=== PATIENT | male | born 1935 | race Caucasian/White ===

== ENCOUNTER 2017-09-08 21:51 | Observation (INO) | payer MEDICARE, OTHER ==
[~2017-09-08] VITALS: Ht 185.4 cm; Wt 81.5 kg
[~2017-09-08 21:51] MED LIST: ACET325 PO; ASCO500 PO; ASPI81CH PO; CEFTR1PB IV; CHOL10002 PO; Cinnamon3.7 ML PO; Colace100 MG PO; DONE5 PO; ERGO400 PO; FISH1000 PO; FOLI400 PO; Hair, Skin & N1 EACH PO; LEVCAR2510 PO; LEVCAR25ER PO; NYST100TC TOP; OMEPRAZOLE MAGN20 MG PO; Ocuvite Lutein1 EACH PO; STOOL SOFTNER PO; TOCO400 PO
[2017-09-08 23:02] LABS: BASOPHILS ABSOLUTE AUTO 0.05 K/mm3 (0.00-0.23); BASOPHILS PERCENT AUTO 1 % (0-2); EOSINOPHILS ABSOLUTE AUTO 0.32 K/mm3 (0.00-0.68); EOSINOPHILS PERCENT AUTO 3 % (0-6); Hematocrit 41.2 % (37.0-53.0); Hemoglobin 13.2 g/dL (13.5-17.5); IMMATURE GRAN ABSOLUTE AUTO 0.05 K/mm3 (0.00-0.10); IMMATURE GRAN PERCENT AUTO 1 % (0-1); LYMPHOCYTES ABSOLUTE AUTO 1.34 K/mm3 (0.84-5.20); LYMPHOCYTES PERCENT AUTO 14 % (21-46); MONOCYTES ABSOLUTE AUTO 0.78 K/mm3 (0.16-1.47); MONOCYTES PERCENT AUTO 8 % (4-13); Mean Corpuscular HGB 31.2 pg (26.0-34.0); Mean Corpuscular Volume 97 fL (80-100); Mean Platelet Volume 8.9 fL (9.1-12.4); NEUTROPHILS ABSOLUTE AUTO 7.13 K/mm3 (1.96-9.15); NEUTROPHILS PERCENT AUTO 74 % (41-73); Platelet Count 311 K/mm3 (150-400); RDW Coefficient Variation 12.7 % (11.7-14.2); RDW Standard Deviation 45.1 fL (35.1-46.3); Red Blood Cell Count 4.23 M/mm3 (4.30-5.90); White Blood Cell Count 9.67 K/mm3 (4.00-11.30)
[2017-09-08 23:16] LABS: Anion Gap 8 mmol/L (6-16); Blood Urea Nitrogen 25 mg/dL (8-24); Bun/Creatinine Ratio 27.3 (12.0-20.0); CO2, Blood 26 mmol/L (21-32); Chloride, Blood 110 mmol/L (98-108); Creatinine, Blood 0.92 mg/dL (0.60-1.20); Glomerular Filtration Rate >60 (60-); Glucose, Blood 113 mg/dL (70-99); Potassium, Blood 4.5 mmol/L (3.5-5.5); Sodium, Blood 144 mmol/L (136-145)
[2017-09-09] MEDS ORDERED: XARELTO20 MG PO (13:46)
[2017-09-09] MEDS ORDERED: EXELON1 EACH TD (13:48)
[2017-09-09] MEDS ORDERED: NUPLAZID17 MG PO (13:49)
[2017-09-09] MEDS ORDERED: RYTARY ER 61.21 EACH PO (13:49)
[2017-09-12] MEDS ORDERED: NUPLAZID17 MG PO (08:47)
[2017-09-12] MEDS ORDERED: Benazepril HCl10 MG PO (08:49)
[2017-09-12] MEDS ORDERED: QUET25 PO (08:50)
[2017-09-12] MEDS ORDERED: RYTARY ER 61.21 EACH PO (08:51)
[2017-09-12] MEDS ORDERED: TAMS.4ER PO (08:52)
[2018-07-03] MEDS ORDERED: FINA5 PO (08:16)
[2018-07-03] MEDS ORDERED: Bactrim Ds Tab1 EACH PO (08:16)
== END 2017-09-12 14:49 | disposition home or self-care (01) ==
LOC: ER 21:51 → MEDS 21:52 → ER 09-09 00:28 → MEDS 09-09 00:28 → ENPENDDIS 09-12 08:26 → MEDS 09-12 14:49
PROVIDERS: Emergency Medicine
DX: G20 Parkinson's disease (principal); F02.80 Dementia in other diseases classified elsewhere, unspecified severity, without behavioral disturbance, psychotic disturbance, mood disturbance, and anxiety; I10 Essential (primary) hypertension; N40.1 Benign prostatic hyperplasia with lower urinary tract symptoms; N13.8 Other obstructive and reflux uropathy; F41.9 Anxiety disorder, unspecified; R44.3 Hallucinations, unspecified; K21.9 Gastro-esophageal reflux disease without esophagitis; F17.200 Nicotine dependence, unspecified, uncomplicated; R41.82 Altered mental status, unspecified; G62.9 Polyneuropathy, unspecified; Z98.890 Other specified postprocedural states; Z79.01 Long term (current) use of anticoagulants; Z79.899 Other long term (current) drug therapy; Z98.1 Arthrodesis status
CPT/HCPCS: 80048; 81000; 85025; 93005; 93010; 97116; 97162; 97166; 97530; 99285; G0378; G8978; G8979; G8987; G8988; G8989

== ENCOUNTER 2017-11-05 09:50 | Inpatient (IN) | payer MEDICARE, OTHER ==
[~2017-11-05] VITALS: Ht 175.3 cm; Wt 75.2 kg
[~2017-11-05 09:50] MED LIST changes: +Benazepril HCl10 MG PO; +EXELON1 EACH TD; +NUPLAZID17 MG PO; +QUET25 PO; +RYTARY ER 61.21 EACH PO; +TAMS.4ER PO; +XARELTO20 MG PO
[2017-11-05 10:44] LABS: BASOPHILS ABSOLUTE AUTO 0.04 K/mm3 (0.00-0.23); BASOPHILS PERCENT AUTO 0 % (0-2); EOSINOPHILS ABSOLUTE AUTO 0.22 K/mm3 (0.00-0.68); EOSINOPHILS PERCENT AUTO 2 % (0-6); Hematocrit 38.5 % (37.0-53.0); Hemoglobin 12.2 g/dL (13.5-17.5); IMMATURE GRAN ABSOLUTE AUTO 0.03 K/mm3 (0.00-0.10); IMMATURE GRAN PERCENT AUTO 0 % (0-1); LYMPHOCYTES PERCENT AUTO 13 % (21-46); MONOCYTES ABSOLUTE AUTO 0.87 K/mm3 (0.16-1.47); MONOCYTES PERCENT AUTO 9 % (4-13); Mean Corpuscular HGB 30.7 pg (26.0-34.0); Mean Corpuscular HGB Conc 31.7 g/dL (31.5-36.5); Mean Corpuscular Volume 97 fL (80-100); Mean Platelet Volume 9.1 fL (9.1-12.4); NEUTROPHILS PERCENT AUTO 75 % (41-73); Platelet Count 322 K/mm3 (150-400); Red Blood Cell Count 3.98 M/mm3 (4.30-5.90); White Blood Cell Count 9.56 K/mm3 (4.00-11.30)
[2017-11-05 11:10] LABS: Alanine Aminotransfer (ALT/SGP 9 U/L (12-78); Albumin, Blood 3.1 g/dL (3.4-5.0); Alk Phos 100 U/L (50-136); Anion Gap 4 mmol/L (6-16); Aspartate Aminotrans (AST/SGOT 17 U/L (12-37); Bilirubin, Total 0.7 mg/dL (0.1-1.0); Blood Urea Nitrogen 21 mg/dL (8-24); Bun/Creatinine Ratio 27.5 (12.0-20.0); CO2, Blood 26 mmol/L (21-32); Chloride, Blood 110 mmol/L (98-108); Creatinine, Blood 0.77 mg/dL (0.60-1.20); Globulin, Blood 3.2 g/dL (2.2-4.0); Glomerular Filtration Rate >60 (60-); Glucose, Blood 102 mg/dL (70-99); Potassium, Blood 4.1 mmol/L (3.5-5.5); Sodium, Blood 140 mmol/L (136-145); Total Protein, Blood 6.3 g/dL (6.4-8.2)
[2017-11-05] MEDS ORDERED: DOCU100 PO (17:07)
[2017-11-12 05:03] LABS: BASOPHILS ABSOLUTE AUTO 0.04 K/mm3 (0.00-0.23); BASOPHILS PERCENT AUTO 1 % (0-2); EOSINOPHILS ABSOLUTE AUTO 0.46 K/mm3 (0.00-0.68); EOSINOPHILS PERCENT AUTO 6 % (0-6); Hematocrit 39.1 % (37.0-53.0); Hemoglobin 12.2 g/dL (13.5-17.5); IMMATURE GRAN ABSOLUTE AUTO 0.05 K/mm3 (0.00-0.10); IMMATURE GRAN PERCENT AUTO 1 % (0-1); LYMPHOCYTES ABSOLUTE AUTO 1.44 K/mm3 (0.84-5.20); LYMPHOCYTES PERCENT AUTO 17 % (21-46); MONOCYTES ABSOLUTE AUTO 0.86 K/mm3 (0.16-1.47); MONOCYTES PERCENT AUTO 10 % (4-13); Mean Corpuscular HGB 30.8 pg (26.0-34.0); Mean Corpuscular HGB Conc 31.2 g/dL (31.5-36.5); Mean Corpuscular Volume 99 fL (80-100); Mean Platelet Volume 10.2 fL (9.1-12.4); NEUTROPHILS ABSOLUTE AUTO 5.51 K/mm3 (1.96-9.15); NEUTROPHILS PERCENT AUTO 66 % (41-73); Platelet Count 300 K/mm3 (150-400); RDW Coefficient Variation 12.3 % (11.7-14.2); RDW Standard Deviation 44.3 fL (35.1-46.3); Red Blood Cell Count 3.96 M/mm3 (4.30-5.90); White Blood Cell Count 8.36 K/mm3 (4.00-11.30)
[2017-11-12 05:23] LABS: Anion Gap 8 mmol/L (6-16); Blood Urea Nitrogen 16 mg/dL (8-24); Bun/Creatinine Ratio 22.5 (12.0-20.0); CO2, Blood 23 mmol/L (21-32); Calcium, Blood 9.4 mg/dL (8.5-10.1); Chloride, Blood 108 mmol/L (98-108); Creatinine, Blood 0.71 mg/dL (0.60-1.20); Glomerular Filtration Rate >60 (60-); Glucose, Blood 91 mg/dL (70-99); Potassium, Blood 4.3 mmol/L (3.5-5.5); Sodium, Blood 139 mmol/L (136-145)
[2017-11-19] MEDS ORDERED: ACET325 PO (11:26)
[2017-11-19] MEDS ORDERED: Bisac-Evac10 MG PR (11:28)
[2017-11-19] MEDS ORDERED: MUPIROCIN1 GM TOP (11:29)
[2017-11-19] MEDS ORDERED: NYSTATIN1 EAC1 TOP (11:31)
[2017-11-19] MEDS ORDERED: MIRALAX17 GM PO (11:31)
[2017-11-19] MEDS ORDERED: RYTARY ER 61.21 EACH PO (11:32)
[2017-11-19] MEDS ORDERED: CVS DISPOSABLE399 ML PR (11:33)
== END 2017-11-19 15:32 | DRG 57 ==
LOC: ER 09:50 → MEDS 14:23 → ENPENDDIS 11-19 11:00 → MEDS 11-19 15:32
PROVIDERS: Internal Medicine
DX: G20 Parkinson's disease (principal); F02.81 Dementia in other diseases classified elsewhere, unspecified severity, with behavioral disturbance; G62.9 Polyneuropathy, unspecified; J98.11 Atelectasis; M25.512 Pain in left shoulder; M25.552 Pain in left hip; R53.1 Weakness; I10 Essential (primary) hypertension; M70.20 Olecranon bursitis, unspecified elbow; Z91.81 History of falling; N40.1 Benign prostatic hyperplasia with lower urinary tract symptoms; R33.8 Other retention of urine; Z86.718 Personal history of other venous thrombosis and embolism; Z79.01 Long term (current) use of anticoagulants; Z87.891 Personal history of nicotine dependence
CPT/HCPCS: 36415; 71046; 73030; 73502; 80048; 80053; 85018; 85025; 93005; 93010; 97163; 97166; 97530; 99285; C9113; G0515; G8978; G8979; G8980; G8987; G8988; G8989

== ENCOUNTER 2018-02-19 12:56 | Emergency (ER) | payer OTHER ==
[~2018-02-19] VITALS: Ht 172.7 cm; Wt 73.9 kg
[~2018-02-19 12:56] MED LIST changes: +Bisac-Evac10 MG PR; +CVS DISPOSABLE399 ML PR; +DOCU100 PO; +MIRALAX17 GM PO; +MUPIROCIN1 GM TOP; +NYSTATIN1 EAC1 TOP
== END 2018-02-19 15:15 | disposition home or self-care (01) ==
LOC: ER 12:56
DX: S01.81XA Laceration without foreign body of other part of head, initial encounter (principal); Z79.899 Other long term (current) drug therapy; Z87.891 Personal history of nicotine dependence; F03.90 Unspecified dementia, unspecified severity, without behavioral disturbance, psychotic disturbance, mood disturbance, and anxiety; G20 Parkinson's disease; W17.89XA Other fall from one level to another, initial encounter
CPT/HCPCS: 12013; 70450; 72125; 99284-25

== ENCOUNTER → 2018-08-21 | Outpatient (CLI) | payer OTHER ==
[~2018-08-21] MED LIST changes: +Bactrim Ds Tab1 EACH PO; +FINA5 PO
[2018-08-21 14:29] LABS: Source, Urine Clean Catch
[2018-08-21 14:40] LABS: Appearance, Urine Clear (Clear); Bilirubin, Urine Neg (Neg); Blood, Urine 1+ (Neg); Color, Urine Yellow (P-Yellow); Glucose Qualitative, Urine Neg (Neg); Ketones, Urine Neg (Neg); Leukocyte Esterase, Urine Neg (Neg); Nitrite, Urine Neg (Neg); Protein, Urine 1+ (Neg); Urobilinogen, Urine 1+ (Normal)
[2018-08-21 14:49] LABS: Bacteria Few /hpf; Red Blood Cells, Urine Not Seen /hpf (0-2); Squamous Epithelial Cells Rare /hpf (Few); White Blood Cells, Urine 0-2 /hpf (0-5)
== END | disposition home or self-care (01) ==
LOC: LAB SHORT 14:28 → LAB 14:28
PROVIDERS: Internal Medicine
DX: N39.0 Urinary tract infection, site not specified (principal)
CPT/HCPCS: 81001

== ENCOUNTER 2019-01-31 15:50 | Inpatient (IN) | payer OTHER ==
[~2019-01-31] VITALS: Ht 175.3 cm; Wt 69.6 kg
[~2019-01-31 15:50] MED LIST changes: +BISA10S PR; -Bisac-Evac10 MG PR
[2019-01-31 17:13] LABS: BASOPHILS ABSOLUTE AUTO 0.06 K/mm3 (0.00-0.23); BASOPHILS PERCENT AUTO 1 % (0-2); EOSINOPHILS ABSOLUTE AUTO 0.19 K/mm3 (0.00-0.68); EOSINOPHILS PERCENT AUTO 2 % (0-6); Hematocrit 45.1 % (37.0-53.0); Hemoglobin 14.3 g/dL (13.5-17.5); IMMATURE GRAN ABSOLUTE AUTO 0.05 K/mm3 (0.00-0.10); IMMATURE GRAN PERCENT AUTO 0 % (0-1); LYMPHOCYTES ABSOLUTE AUTO 1.76 K/mm3 (0.84-5.20); LYMPHOCYTES PERCENT AUTO 14 % (21-46); MONOCYTES ABSOLUTE AUTO 1.64 K/mm3 (0.16-1.47); MONOCYTES PERCENT AUTO 13 % (4-13); Mean Corpuscular HGB 30.2 pg (26.0-34.0); Mean Corpuscular HGB Conc 31.7 g/dL (31.5-36.5); Mean Corpuscular Volume 95 fL (80-100); Mean Platelet Volume 9.3 fL (9.1-12.4); NEUTROPHILS ABSOLUTE AUTO 9.09 K/mm3 (1.96-9.15); NEUTROPHILS PERCENT AUTO 71 % (41-73); Platelet Count 352 K/mm3 (150-400); RDW Coefficient Variation 13.1 % (11.7-14.2); RDW Standard Deviation 46.2 fL (35.1-46.3); Red Blood Cell Count 4.73 M/mm3 (4.30-5.90); White Blood Cell Count 12.79 K/mm3 (4.00-11.30)
[2019-01-31 17:22] LABS: Albumin, Blood 3.3 g/dL (3.4-5.0); Albumin/Globulin Ratio 0.8 (0.8-1.8); Bilirubin, Total 0.4 mg/dL (0.1-1.0); Bun/Creatinine Ratio 18.5 (12.0-20.0); Creatinine, Blood 1.35 mg/dL (0.60-1.20); Globulin, Blood 4.2 g/dL (2.2-4.0); Potassium, Blood 4.2 mmol/L (3.5-5.5); Total Protein, Blood 7.5 g/dL (6.4-8.2)
[2019-01-31 17:30] LABS: Source, Urine Catheter
[2019-01-31 17:35] LABS: Bilirubin, Urine Neg (Neg); Blood, Urine 4+ (Neg); Glucose Qualitative, Urine Neg (Neg); Ketones, Urine Neg (Neg); Leukocyte Esterase, Urine 3+ (Neg); Nitrite, Urine Neg (Neg); Protein, Urine 3+ (Neg); Urobilinogen, Urine NORM (Normal)
[2019-01-31 18:26] LABS: Appearance, Urine Cloudy (Clear); Color, Urine Yellow (P-Yellow)
[2019-01-31 18:29] LABS: Red Blood Cells, Urine 25-50 /hpf (0-2); White Blood Cells, Urine TNTC /hpf (0-5)
[2019-01-31 18:30] LABS: Bacteria Many /hpf; Squamous Epithelial Cells Rare /hpf (Few)
--- NOTE | 2019-02-01 00:56 | NUR ---
0055 ON ASSESMENT PT HEART RATE IS IRREGULAR IN THE 80'S. PER NO HX OF IRREGULAR HR. CALLED TO HOSPITALIST DR. MÁRQUEZ AND INFOMED HIM. NO ORDERS GIVEN. WILL CONTINUE TO MONITOR.
[2019-02-01 05:18] LABS: BASOPHILS ABSOLUTE AUTO 0.03 K/mm3 (0.00-0.23); BASOPHILS PERCENT AUTO 0 % (0-2); EOSINOPHILS ABSOLUTE AUTO 0.28 K/mm3 (0.00-0.68); EOSINOPHILS PERCENT AUTO 3 % (0-6); Hematocrit 40.5 % (37.0-53.0); Hemoglobin 12.8 g/dL (13.5-17.5); IMMATURE GRAN ABSOLUTE AUTO 0.06 K/mm3 (0.00-0.10); IMMATURE GRAN PERCENT AUTO 1 % (0-1); LYMPHOCYTES ABSOLUTE AUTO 1.68 K/mm3 (0.84-5.20); LYMPHOCYTES PERCENT AUTO 18 % (21-46); MONOCYTES ABSOLUTE AUTO 1.32 K/mm3 (0.16-1.47); MONOCYTES PERCENT AUTO 14 % (4-13); Mean Corpuscular HGB 30.2 pg (26.0-34.0); Mean Corpuscular HGB Conc 31.6 g/dL (31.5-36.5); Mean Corpuscular Volume 96 fL (80-100); Mean Platelet Volume 8.9 fL (9.1-12.4); NEUTROPHILS ABSOLUTE AUTO 6.24 K/mm3 (1.96-9.15); NEUTROPHILS PERCENT AUTO 65 % (41-73); Platelet Count 270 K/mm3 (150-400); RDW Standard Deviation 45.4 fL (35.1-46.3); Red Blood Cell Count 4.24 M/mm3 (4.30-5.90); White Blood Cell Count 9.61 K/mm3 (4.00-11.30)
--- NOTE | 2019-02-01 05:30 | NUR ---
NOC SHIFT SUMMARY PT IS CONFUSED ON ADMIT THIS NIGHT. HX OF DEMENTIA AND IS ALWAYS CONFUSED BUT MORE SO NOW PER . HE IS ADMITTED FOR UTI SEPSIS. IS INCONTINENT AND VOIDING INTO ATTENDS. HEART SOUNDS ARE IRREGULAR. PER NO HISTORY OF IRREGULAR HEARTBEAT. CALLED FINDINGS TO HOSPITALIST NO ORDERS RECIEVED WILL CONTINUE TO MONITOR. HR IN THE 80'S AND VSS. WAS NOT ABLE TO RECONCILE MED LIST. PER MEDS WERE RECENTLY CHANGED. SHE WILL BRING IN UPDATED MED LIST THIS DAY. PT CURRENTLY APPEARS TO BE SLEEPING AND IN NO ACUTE DISTRESS. WILL CONTINUE TO MONITOR.
[2019-02-01 05:46] LABS: Anion Gap 4 mmol/L (6-16); Blood Urea Nitrogen 20 mg/dL (8-24); CO2, Blood 28 mmol/L (21-32); Calcium, Blood 9.4 mg/dL (8.5-10.1); Chloride, Blood 110 mmol/L (98-108); Creatinine, Blood 1.05 mg/dL (0.60-1.20); Glomerular Filtration Rate >60 (60-); Glucose, Blood 115 mg/dL (70-99); Potassium, Blood 4.1 mmol/L (3.5-5.5); Sodium, Blood 142 mmol/L (136-145)
[2019-02-01] MEDS ORDERED: QUET25 PO (11:04)
[2019-02-01] MEDS ORDERED: ACET500 PO (11:05)
[2019-02-01] MEDS ORDERED: ENEMA READY TO133 ML PR (11:09)
[2019-02-01] MEDS ORDERED: Milk Of Ma400 MG/5 M PO (11:11)
[2019-02-01] MEDS ORDERED: GUAI600T33 PO (11:16)
--- NOTE | 2019-02-01 17:21 | NUR ---
PT AOX2 AND COOPERATIVE OF CARE. PT DOES NOT USE CALL LIGHT AND IS INCONTENT. PT HAD A TEMP LATE AFTERNOON AND WAS TREATED PER EMAR. PT LOOKS TO BE IMPROVING AND IS RESTING IN BED. PARKINSON MEDICATION WAS LABELED AND PLACED IN PT'S DRAWER. NO DISTRESS NOTED AND WILL CONTINUE TO MONITOR.
--- NOTE | 2019-02-02 05:23 | NUR ---
NOC SHIFT SUMMARY PT IS PLEASANTLY CONFUSED AND COOPERATIVE WITH CARE. NO ATTEMPTS TO GET OUT OF BED THIS NIGHT. VSS. HE HAS ACTUALLY SLEPT MUCH OF THE NIGHT. BLADDER SCAN DONE EARLY THIS EVENING PER MD REQUEST SHOWED 224ML IN BLADDER. PT CURRENTLY SLEEPING AND APPEARS IN NO ACUTE DISTRESS. WILL CONTINUE TO MONITOR.
[2019-02-02 07:15] LABS: BASOPHILS ABSOLUTE AUTO 0.02 K/mm3 (0.00-0.23); BASOPHILS PERCENT AUTO 0 % (0-2); EOSINOPHILS ABSOLUTE AUTO 0.13 K/mm3 (0.00-0.68); EOSINOPHILS PERCENT AUTO 2 % (0-6); Hematocrit 39.3 % (37.0-53.0); Hemoglobin 12.4 g/dL (13.5-17.5); IMMATURE GRAN ABSOLUTE AUTO 0.03 K/mm3 (0.00-0.10); IMMATURE GRAN PERCENT AUTO 0 % (0-1); LYMPHOCYTES ABSOLUTE AUTO 1.41 K/mm3 (0.84-5.20); LYMPHOCYTES PERCENT AUTO 20 % (21-46); MONOCYTES ABSOLUTE AUTO 0.96 K/mm3 (0.16-1.47); MONOCYTES PERCENT AUTO 13 % (4-13); Mean Corpuscular HGB 30.3 pg (26.0-34.0); Mean Corpuscular HGB Conc 31.6 g/dL (31.5-36.5); Mean Corpuscular Volume 96 fL (80-100); NEUTROPHILS ABSOLUTE AUTO 4.67 K/mm3 (1.96-9.15); NEUTROPHILS PERCENT AUTO 65 % (41-73); Platelet Count 268 K/mm3 (150-400); RDW Coefficient Variation 12.7 % (11.7-14.2); RDW Standard Deviation 44.7 fL (35.1-46.3); Red Blood Cell Count 4.09 M/mm3 (4.30-5.90); White Blood Cell Count 7.22 K/mm3 (4.00-11.30)
[2019-02-02 07:30] LABS: Anion Gap 4 mmol/L (6-16); Blood Urea Nitrogen 14 mg/dL (8-24); Bun/Creatinine Ratio 18.7 (12.0-20.0); CO2, Blood 29 mmol/L (21-32); Calcium, Blood 9.1 mg/dL (8.5-10.1); Chloride, Blood 109 mmol/L (98-108); Creatinine, Blood 0.75 mg/dL (0.60-1.20); Glomerular Filtration Rate >60 (60-); Glucose, Blood 104 mg/dL (70-99); Potassium, Blood 4.4 mmol/L (3.5-5.5); Sodium, Blood 142 mmol/L (136-145)
--- NOTE | 2019-02-02 17:19 | NUR ---
PT AOX2 WITH CONFUSION. PT DOING MUCH BETTER TODAY AND HIS TREMORS HAVE DIMINISHED. PT ALSO HAS NOT BEEN AGITATED TO DAY. PT COOPERATIVE OF ALL CARE. PT NEEDED BOWEL CARE TODAY AND THIS DESTINATION SPECIALIST ADMINISTERED AN ENEMA PER EMAR. PT TOLERATED WELL. PT WAS GIVEN A LOT OF TIME AND SUPPORT AND WAS ABLE TO HAVE AN EXTRA LARGE BM. PT STATED HE FELT MUCH BETTER HE HAD STOMACH PAIN ALL MORNING. PT STAYS IN BED AND IS RESTING COMFORTABLY AT THIS TIME WILL CONTINUE TO MONITOR.
--- NOTE | 2019-02-03 04:50 | NUR ---
NOC SHIFT SUMMARY PT SLEEPING FOR MOST OF SHIFT. HE AWOKE TO TAKE EVENING MEDS AND DOES AWAKE WITH EACH POSITION CHANGE BUT SHORTLY FALLS BACK TO SLEEP WHEN FINISHED. HE REMAINS CONFUSED WHICH IS HIS BASELINE. HE IS INCONTINENT AND SOAKS ATTENDS. VSS. HE PRESENTLY APPEARS TO BE SLEEPING AND IN NO ACUTE DISTRESS. WILL CONTINUE TO MONITOR.
[2019-02-03] MEDS ORDERED: Augmentin 500-1 EACH PO (10:59)
--- NOTE | 2019-02-03 11:52 | NUR ---
PER [facility] TRANSPORT FROM [facility] WONT BE HERE UNTIL 1430, SHE SPOKE WITH FACILITY AND THEY WERE OK WITH THAT. NIR MACEDO FROM [facility] IN TO SEE PT THIS AM AND OK'D FOR PT TO DISCHARGE BACK. DISCHARGE ORDERS FAXED TO [facility] AT BEDSIDE AND NOTIFIED OF PLAN.
--- NOTE | 2019-02-03 14:43 | NUR ---
DISCHARGE SUMMARY PATIENT CALM AND COOPERATIVE THROUGHOUT SHIFT. ABLE TO ANSWER SOME QUESTIONS AND ABLE TO FOLLOW SOME SIMPLE COMMANDS. EXAMPLE, WHEN PROMPTED, HE SMILED, BUT UNABLE TO FOLLOW SECOND COMMAND TO STICK OUT HIS TONGUE. SPEECH WAS CLEAR AT TIMES AND GARBLED AT TIMES. PATIENT CONTINUES TO VOID WITHOUT DIFFICULTY (INCONTINENT). URINE IS A CLEAR YELLOW. PATIENT DISCHARGED TODAY AT 14:29. PATIENT'S , NICOLE, WAS AT BEDSIDE AND AWARE OF DISCHARGE PLAN. DISCHARGE PERSCRIPTIONS FAXED TO [facility]. [facility] SIDE SEAM TENDER VISITED PATIENT THIS MORNING. PATIENT'S HOME MEDICATIONS PROVIDED TO . ALL DISCHARGE QUESTIONS AND CONCERNS ADDRESSED. PATIENT DISCHARGED IN WHEELCHAIR WITH TRANSPORT. TO FOLLOW AND ACCOMPANY HIM TO [facility]. PATIENT STABLE AT TIME OF DISCHARGE.
== END 2019-02-03 14:32 | disposition home or self-care (01) | DRG 871 ==
LOC: ER 15:50 → MEDS 21:42 → ENPENDDIS 02-03 09:50 → MEDS 02-03 14:32
PROVIDERS: Emergency Medicine; ADMIT Family Medicine
DX: A41.9 Sepsis, unspecified organism (principal); G93.41 Metabolic encephalopathy; N13.30 Unspecified hydronephrosis; F02.81 Dementia in other diseases classified elsewhere, unspecified severity, with behavioral disturbance; N30.90 Cystitis, unspecified without hematuria; G20 Parkinson's disease; I10 Essential (primary) hypertension; N40.0 Benign prostatic hyperplasia without lower urinary tract symptoms; Z66 Do not resuscitate; K59.00 Constipation, unspecified
CPT/HCPCS: 36415; 51701; 71045; 74176; 80048; 80053; 81001; 83605; 85025; 87040; 87086; 96361-59; 96374-59; 99285-25; A9270; J0696; J1650; J7030; J7120

== ENCOUNTER 2019-02-25 16:25 | Emergency (ER) | payer OTHER ==
[~2019-02-25] VITALS: Ht 175.3 cm; Wt 63.5 kg
[~2019-02-25 16:25] MED LIST changes: +ACET500 PO; +Augmentin 500-1 EACH PO; +ENEMA READY TO133 ML PR; +GUAI600T33 PO; +Milk Of Ma400 MG/5 M PO
[2019-02-25] MEDS ORDERED: Cephalexin250 MG/5 M PO (17:23)
[2019-02-25] MEDS ORDERED: Bactrim Ds Tab1 EACH PO (18:05)
== END 2019-02-25 20:00 | disposition home or self-care (01) ==
LOC: ER 16:25
DX: L02.414 Cutaneous abscess of left upper limb (principal); Z79.899 Other long term (current) drug therapy; K21.9 Gastro-esophageal reflux disease without esophagitis; I10 Essential (primary) hypertension; Z87.891 Personal history of nicotine dependence
CPT/HCPCS: 10060; 87070; 87075; 87077; 87147; 87186; 87205; 99284-25

== ENCOUNTER → 2020-02-02 | Outpatient (CLI) | payer OTHER ==
[~2020-02-02] MED LIST changes: +Cephalexin250 MG/5 M PO
[2020-02-02 15:18] LABS: BASOPHILS ABSOLUTE AUTO 0.04 K/mm3 (0.00-0.23); BASOPHILS PERCENT AUTO 0 % (0-2); EOSINOPHILS ABSOLUTE AUTO 0.35 K/mm3 (0.00-0.68); EOSINOPHILS PERCENT AUTO 4 % (0-6); Hematocrit 47.8 % (37.0-53.0); IMMATURE GRAN ABSOLUTE AUTO 0.04 K/mm3 (0.00-0.10); IMMATURE GRAN PERCENT AUTO 0 % (0-1); LYMPHOCYTES ABSOLUTE AUTO 1.37 K/mm3 (0.84-5.20); LYMPHOCYTES PERCENT AUTO 14 % (21-46); MONOCYTES ABSOLUTE AUTO 0.48 K/mm3 (0.16-1.47); MONOCYTES PERCENT AUTO 5 % (4-13); Mean Corpuscular HGB 30.8 pg (26.0-34.0); Mean Corpuscular HGB Conc 31.4 g/dL (31.5-36.5); Mean Corpuscular Volume 98 fL (80-100); Mean Platelet Volume 10.2 fL (9.1-12.4); NEUTROPHILS ABSOLUTE AUTO 7.28 K/mm3 (1.96-9.15); NEUTROPHILS PERCENT AUTO 76 % (41-73); Platelet Count 310 K/mm3 (150-400); RDW Coefficient Variation 13.1 % (11.7-14.2); RDW Standard Deviation 47.2 fL (35.1-46.3); Red Blood Cell Count 4.87 M/mm3 (4.30-5.90); White Blood Cell Count 9.56 K/mm3 (4.00-11.30)
[2020-02-02 16:17] LABS: Alanine Aminotransfer (ALT/SGP 31 U/L (12-78); Albumin, Blood 3.6 g/dL (3.4-5.0); Alk Phos 92 U/L (50-136); Anion Gap 4 mmol/L (6-16); Aspartate Aminotrans (AST/SGOT 32 U/L (12-37); Bilirubin, Total 0.7 mg/dL (0.1-1.0); Blood Urea Nitrogen 15 mg/dL (8-24); Bun/Creatinine Ratio 17.7 (12.0-20.0); CO2, Blood 29 mmol/L (21-32); Calcium, Blood 9.7 mg/dL (8.5-10.1); Chloride, Blood 107 mmol/L (98-108); Creatinine, Blood 0.85 mg/dL (0.60-1.20); Globulin, Blood 3.7 g/dL (2.2-4.0); Glomerular Filtration Rate >60 (60-); Glucose, Blood 158 mg/dL (70-99); Potassium, Blood 4.6 mmol/L (3.5-5.5); Sodium, Blood 140 mmol/L (136-145); Total Protein, Blood 7.3 g/dL (6.4-8.2)
== END | disposition home or self-care (01) ==
LOC: LAB SHORT 13:14 → LAB 13:14
PROVIDERS: Internal Medicine
DX: I10 Essential (primary) hypertension (principal)
CPT/HCPCS: 80053; 85025

== ENCOUNTER → 2020-11-02 | Outpatient (CLI) | payer OTHER ==
[2020-11-02 12:51] LABS: BASOPHILS ABSOLUTE AUTO 0.06 K/mm3 (0.00-0.23); BASOPHILS PERCENT AUTO 1 % (0-2); EOSINOPHILS PERCENT AUTO 6 % (0-6); Hematocrit 42.2 % (37.0-53.0); Hemoglobin 13.2 g/dL (13.5-17.5); IMMATURE GRAN ABSOLUTE AUTO 0.12 K/mm3 (0.00-0.10); IMMATURE GRAN PERCENT AUTO 1 % (0-1); LYMPHOCYTES ABSOLUTE AUTO 1.75 K/mm3 (0.84-5.20); LYMPHOCYTES PERCENT AUTO 15 % (21-46); MONOCYTES ABSOLUTE AUTO 0.87 K/mm3 (0.16-1.47); MONOCYTES PERCENT AUTO 7 % (4-13); Mean Corpuscular HGB Conc 31.3 g/dL (31.5-36.5); Mean Corpuscular Volume 96 fL (80-100); Mean Platelet Volume 9.5 fL (9.1-12.4); NEUTROPHILS ABSOLUTE AUTO 8.45 K/mm3 (1.96-9.15); NEUTROPHILS PERCENT AUTO 71 % (41-73); Platelet Count 391 K/mm3 (150-400); RDW Coefficient Variation 13.9 % (11.7-14.2); RDW Standard Deviation 49.4 fL (35.1-46.3); White Blood Cell Count 11.95 K/mm3 (4.00-11.30)
[2020-11-02 13:15] LABS: Alanine Aminotransfer (ALT/SGP 32 U/L (12-78); Albumin, Blood 3.4 g/dL (3.4-5.0); Albumin/Globulin Ratio 0.8 (0.8-1.8); Alk Phos 114 U/L (50-136); Anion Gap 5 mmol/L (6-16); Aspartate Aminotrans (AST/SGOT 19 U/L (12-37); Bilirubin, Total 0.3 mg/dL (0.1-1.0); Blood Urea Nitrogen 18 mg/dL (8-24); Bun/Creatinine Ratio 18.1 (12.0-20.0); CO2, Blood 27 mmol/L (21-32); Chloride, Blood 109 mmol/L (98-108); Glomerular Filtration Rate >60 (60-); Glucose, Blood 78 mg/dL (70-99); Potassium, Blood 4.5 mmol/L (3.5-5.5); Sodium, Blood 141 mmol/L (136-145); Total Protein, Blood 7.4 g/dL (6.4-8.2)
== END | disposition home or self-care (01) ==
LOC: LAB SHORT 09:20 → PLD 09:20
PROVIDERS: Internal Medicine
DX: I10 Essential (primary) hypertension (principal); R73.9 Hyperglycemia, unspecified
CPT/HCPCS: 80053; 83036; 85025